=== PATIENT | male | born 1955 | race Caucasian/White ===

== ENCOUNTER → 2018-03-11 | Day surgery (SDC) | payer BC ==
[2018-03-10 12:32] LABS: BASOPHILS # (AUTO) 0.1 (0.0-0.1); EOSINOPHILS # (AUTO) 0.1 (0.0-0.4); EOSINOPHILS % 1.4 % (0.0-6.0); HEMOGLOBIN 15.5 g/dL (14.0-18.0); LYMPHOCYTES # (AUTO) 2.1 (1.0-3.2); MEAN CORPUSCULAR HGB CONC 34.4 g/dL (31-35); MONOCYTES # (AUTO) 0.5 (0.2-0.8); MONOCYTES % 7.6 % (4.4-11.3); NEUTROPHILS # (AUTO) 4.2 (2.1-6.9); NEUTROPHILS % 59.6 % (38.7-80.0); PLATELET COUNT 276 x10e3/uL (140-360); RED CELL DISTRIBUTION WIDTH 12.1 % (11.7-14.4)
[2018-03-10 12:42] LABS: INR 0.89; PROTHROMBIN TIME 12.9 seconds (11.9-14.5)
[2018-03-10 12:53] LABS: ALANINE AMINOTRANSFERASE 42 IU/L (0-55); ALBUMIN/GLOBULIN RATIO 1.3 (0.8-2.0); ALKALINE PHOSPHATASE 69 IU/L (40-150); ANION GAP 12.5 mmol/L (8-16); BLOOD UREA NITROGEN 20 mg/dL (7-26); BUN/CREATININE RATIO 20 (6-25); CALCIUM 9.7 mg/dL (8.4-10.2); CARBON DIOXIDE 27 mmol/L (22-29); CHLORIDE 104 mmol/L (98-107); CREATININE, SERUM 1.01 mg/dL (0.72-1.25); EST GLOMERULAR FILTRATION RATE > 60 ML/MIN (60-); GLUCOSE 74 mg/dL (74-118); POTASSIUM 4.5 mmol/L (3.5-5.1); SODIUM 139 mmol/L (136-145)
[2018-03-11] VITALS (7 sets, daily range): BP systolic 136–183; BP diastolic 70–89
[~2018-03-11] VITALS: Ht 175.3 cm; Wt 93.0 kg
[~2018-03-11] MED LIST: ALPRAZOLAM1 MG PO; ASPIR 8181 MG PO; ASPIRIN81 MG PEG; BENZOCAINE 20% SPR 60 ML CAN ONE; FENTANYL CITRATE/PF 100MCG/2 ML INJ ONE; HEPARIN SOD (PORCINE) 1000 UNIT/ML 30ML ONE; HEPARIN SOD/SOD CHLORIDE 2,000 ML ONE; IOPAMIDOL 370 MG/ML 200 ML INFUS..BTL INJ ONE; LIDOCAINE HCL 2% LOCAL 20 ML VIAL ONE; LOSARTAN POTASS25 MG PO; MIDAZOLAM HCL 2 MG/2 ML VIAL ONE; MULTI-VITAMIN1 EACH PO; NIACIN500 M2 PO; NITROGLYCERIN/D5W 200 MCG/ML 250 ML ONE; OMEGA 3 FISH O1 EACH PO; PRILOSEC PO; PROPOFOL IV EMULSION 10 MG/ML 20 ML VIAL ONE; SODIUM CHLORIDE 0.9% 1000ML 1,000 ML ONE; TAMAZAPAM PO; TEMAZEPAM30 MG PO; VENLAFAXINE HCL75 MG PO; VERAPAMIL HCL 2.5 MG/ML 2 ML VIAL ONE
--- NOTE | 2018-03-11 16:20 | NUR ---
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 Identifierx2 [facility] post MARCIN DrDoroteoa. No Fix. 400cc NS to left hand at 100cchr via iv pump. BAck to baseline orientation. PEERL at bedside. Abd soft and nontender Denies necessity defecate or urinate. Manolo fem PPx4. Rt Vascade femoral site w/o s/s bleeding or hematoma. DC time approx 1830. Paper discussed with and copies of POC given to pt. VS stable NSR.
--- NOTE | 2018-03-11 16:58 | Operative Report ---
DATE OF PROCEDURE: March 11, 2018 INDICATIONS: Coronary artery disease and abnormal stress test. PROCEDURES PERFORMED 1. Left heart catheterization. 2. Selective coronary angiography. 3. Deployment of right groin VAS closer device. COMPLICATIONS: None. RECOMMENDATIONS: Medical therapy. Consider right coronary artery stent if angina. Access obtained in the right femoral artery. A 6-Swedish sheath was placed. Diagnostic coronary angiogram revealed widely patent left main. Left anterior descending artery had mild 20% stenosis. Circumflex was occluded, small vessel 2 mm in size. Right coronary artery mid 50% to 70% stenosis. Dominant right coronary artery with collaterals to the circumflex artery. Ramus intermedius was widely patent. LV end-diastolic pressure of 20. No gradient across the aortic valve on pullback. Right groin was repaired using VAS closer device. Patient discharged home same day. Job#: [id number] [employer]
--- NOTE | 2018-03-11 18:30 | NUR ---
1830 dc home with rt vascade femoral dressing intact PPx4 PD/ Dp present. Poc discussed and copies of DC papers with pt iv removed ,site w/o s/s infiltration. 2x2 gauze dressing with coban dressing in place. Denies Cp or Sob aware of importance f/o care and following POC Has helper driver and tolerating po intake. To car per RN and escorted and buckled to car seat. Stable vs no c/o.
== END | disposition home or self-care (01) ==
LOC: CATH LAB 11:08 → EDSTATUS 14:00
PROVIDERS: ATTEND Internal Medicine
DX: I25.10 Atherosclerotic heart disease of native coronary artery without angina pectoris (principal); Q23.1 Congenital insufficiency of aortic valve; R94.39 Abnormal result of other cardiovascular function study; I10 Essential (primary) hypertension; K21.9 Gastro-esophageal reflux disease without esophagitis; F41.9 Anxiety disorder, unspecified; Z01.812 Encounter for preprocedural laboratory examination
CPT/HCPCS: 36415; 80053; 85025; 85610; 93312; 93320; 93325; 93458; C1760; C1769; J1644; J2001; J2250; J2704; J7030; Q9967

== ENCOUNTER 2020-11-27 17:44 | Emergency (ER) | payer BC ==
[~2020-11-27] VITALS: Ht 177.8 cm; Wt 88.5 kg
[~2020-11-27 17:44] MED LIST changes: -BENZOCAINE 20% SPR 60 ML CAN ONE; -FENTANYL CITRATE/PF 100MCG/2 ML INJ ONE; -HEPARIN SOD (PORCINE) 1000 UNIT/ML 30ML ONE; -HEPARIN SOD/SOD CHLORIDE 2,000 ML ONE; -IOPAMIDOL 370 MG/ML 200 ML INFUS..BTL INJ ONE; -LIDOCAINE HCL 2% LOCAL 20 ML VIAL ONE; -MIDAZOLAM HCL 2 MG/2 ML VIAL ONE; -NITROGLYCERIN/D5W 200 MCG/ML 250 ML ONE; -PROPOFOL IV EMULSION 10 MG/ML 20 ML VIAL ONE; -SODIUM CHLORIDE 0.9% 1000ML 1,000 ML ONE; -VERAPAMIL HCL 2.5 MG/ML 2 ML VIAL ONE
[2020-11-27] MEDS ORDERED: PREDNISONE50 MG PO (18:17)
[2020-11-27] MEDS ORDERED: VALACYCLOVIR1000 MG PO (18:24)
== END 2020-11-27 18:46 | disposition home or self-care (01) ==
LOC: ER 18:27
DX: G51.0 Bell's palsy (principal); I10 Essential (primary) hypertension; K21.9 Gastro-esophageal reflux disease without esophagitis; Z86.73 Personal history of transient ischemic attack (TIA), and cerebral infarction without residual deficits; Z85.72 Personal history of non-Hodgkin lymphomas
CPT/HCPCS: 99282

== ENCOUNTER 2024-12-17 03:14 | Inpatient (IN) | payer MEDICARE ==
[2024-12-17] VITALS (11 sets, daily range): BP systolic 98–157; BP diastolic 64–83; PULSE 55–101; RESP 14–20; TEMP 98.1–100.2; O2SAT 94–100
[~2024-12-17] VITALS: Ht 175.3 cm; Wt 93.0 kg
[~2024-12-17 03:14] MED LIST changes: +PREDNISONE50 MG PO; +VALACYCLOVIR1000 MG PO
[2024-12-17 03:35] LABS: BASOPHILS % 0.4 % (0.0-1.0); EOSINOPHILS % 2.2 % (0.0-6.0); LYMPHOCYTES % 10.7 % (18.0-39.1); MONOCYTES % 7.3 % (4.4-11.3); NEUTROPHILS % 79.0 % (38.7-80.0); RED CELL DISTRIBUTION WIDTH 12.6 % (11.7-14.4)
[2024-12-17] MEDS: ONDANSETRON HCL INJ 2MG/ML 2ML 2 MG/ML VIAL IV STA (03:41)
[2024-12-17] MEDS: Morphine 2mg Syringe 2 MG/ML SYR IV ONE (03:42)
[2024-12-17 03:51] LABS: INR 0.9
[2024-12-17 04:01] LABS: EST GLOMERULAR FILTRATION RATE 51 ML/MIN (>=60)
[2024-12-17] MEDS ORDERED: LIPITOR20 MG PO (05:17)
[2024-12-17] MEDS ORDERED: CLOPIDOGREL75 MG PO (05:17)
[2024-12-17] MEDS ORDERED: LEXAPRO20 MG PO (05:17)
[2024-12-17] MEDS ORDERED: TENORMIN25 MG PO (05:17)
[2024-12-17] MEDS ORDERED: OMEPRAZOLE40 MG PO (05:17)
[2024-12-17] MEDS: CLOPIDOGREL BISULFATE 75 MG TAB PO SCH (08:45)
[2024-12-17] MEDS: ASPIRIN 81 MG ENTERIC COATED PO SCH (08:45)
[2024-12-17] MEDS: Morphine 2mg Syringe 2 MG/ML SYR IV PRN (10:09)
[2024-12-17] MEDS: ACETAMINOPHEN 325 MG TAB PO PRN ×2 (12:24→19:47)
[2024-12-17 13:52] LABS: CORONAVIRUS COVID-19 AG NEGATIVE (NEGATIVE)
[2024-12-17] MEDS ORDERED: DEXTROSE 50% SYRINGE 50 ML IV PRN (14:15)
[2024-12-17] MEDS ORDERED: ALBUTEROL/IPRATROPIUM 3 ML NEB NEB PRN (14:15)
[2024-12-17] MEDS ORDERED: SIMETHICONE 80 MG CHEW PO PRN (14:15)
[2024-12-17] MEDS ORDERED: MELATONIN 5 MG TABLET PO PRN (14:15)
[2024-12-17] MEDS ORDERED: BENZONATATE 100 MG CAP PO PRN (14:15)
[2024-12-17] MEDS ORDERED: DIPHENHYDRAMINE HCL 25 MG CAP PO PRN (14:15)
[2024-12-17] MEDS ORDERED: ONDANSETRON HCL INJ 2MG/ML 2ML 2 MG/ML VIAL IV PRN (14:15)
[2024-12-17] MEDS ORDERED: HYDRALAZINE HCL 20 MG/ML VIAL IV PRN (14:15)
[2024-12-17] MEDS ORDERED: DOCUSATE SODIUM 100 MG CAP PO PRN (14:15)
[2024-12-17] MEDS ORDERED: IOPAMIDOL 370 MG/ML 100 ML INFUS..BTL INJ ONE (14:46)
[2024-12-17] MEDS: SODIUM CHLORIDE 0.9% 1000ML 1,000 ML IV SCH (16:06)
[2024-12-17] MEDS: ENOXAPARIN SOD INJ 40 MG/0.4 ML SYR SC SCH (17:03)
[2024-12-17] MEDS: ONDANSETRON HCL INJ 2MG/ML 2ML 2 MG/ML VIAL IV PRN (19:48)
[2024-12-17] MEDS: ATENOLOL 50 MG TAB PO SCH (19:51)
[2024-12-17] MEDS: ATORVASTATIN 20 MG TAB PO SCH (19:51)
[2024-12-17] MEDS: Doxycycline IV 100 MG in SODIUM CHLORIDE 0.9% 100 ML IV SCH (22:06)
[2024-12-18] VITALS (11 sets, daily range): BP systolic 99–125; BP diastolic 62–71; PULSE 63–91; RESP 17–20; TEMP 97.4–101.3; O2SAT 93–98
[2024-12-18 05:11] LABS: BASOPHILS % 0.2 % (0.0-1.0); EOSINOPHILS % 0.1 % (0.0-6.0); LYMPHOCYTES % 4.2 % (18.0-39.1); MONOCYTES % 6.9 % (4.4-11.3); NEUTROPHILS % 86.6 % (38.7-80.0); RED CELL DISTRIBUTION WIDTH 13.2 % (11.7-14.4)
[2024-12-18 05:56] LABS: EST GLOMERULAR FILTRATION RATE 40.0 ML/MIN (>=60); PHOSPHORUS 2.9 MG/DL (2.3-4.7)
[2024-12-18 06:18] LABS: CHOL/HDL RATIO 2.1 (3.9-4.7); LDL CHOLESTEROL 15.0 MG/DL (60-130)
[2024-12-18] MEDS: PANTOPRAZOLE SOD 40 MG TABEC PO SCH (07:36)
[2024-12-18] MEDS ORDERED: CLOPIDOGREL BISULFATE 75 MG TAB PO SCH (09:00)
[2024-12-18] MEDS ORDERED: ASPIRIN 81 MG CHEW TAB PEG SCH (09:00)
[2024-12-18] MEDS: ATENOLOL 50 MG TAB PO SCH (09:00)
[2024-12-18] MEDS: LOSARTAN POTASSIUM 25 MG TAB PO SCH (09:00)
[2024-12-19] VITALS (12 sets, daily range): BP systolic 117–139; BP diastolic 70–88; PULSE 75–92; RESP 17–20; TEMP 98–99.9; O2SAT 95–98
[2024-12-19 04:59] LABS: BASOPHILS % 0.1 % (0.0-1.0); EOSINOPHILS % 0.2 % (0.0-6.0); LYMPHOCYTES % 3.2 % (18.0-39.1); MONOCYTES % 5.7 % (4.4-11.3); NEUTROPHILS % 87.1 % (38.7-80.0); RED CELL DISTRIBUTION WIDTH 13.2 % (11.7-14.4)
[2024-12-19 05:24] LABS: EST GLOMERULAR FILTRATION RATE 45.0 ML/MIN (>=60)
[2024-12-19] MEDS: POTASSIUM CHLORIDE 20 MEQ TAB CR PO ONE (14:20)
[2024-12-19] MEDS: CALCIUM CARBONATE 500 MG CHEWABLE TABS PO PRN (18:04)
[2024-12-19] MEDS: LOSARTAN POTASSIUM 25 MG TAB PO SCH (20:21)
[2024-12-20] VITALS (10 sets, daily range): BP systolic 108–128; BP diastolic 50–76; PULSE 68–83; RESP 18–20; TEMP 98–99.5; O2SAT 94–98
[2024-12-20] MEDS: ALPRAZOLAM 1 MG TAB PO SCH (04:30)
[2024-12-20 04:43] LABS: BASOPHILS % 0.1 % (0.0-1.0); EOSINOPHILS % 0.6 % (0.0-6.0); LYMPHOCYTES % 4.3 % (18.0-39.1); MONOCYTES % 6.0 % (4.4-11.3); NEUTROPHILS % 87.1 % (38.7-80.0); RED CELL DISTRIBUTION WIDTH 13.3 % (11.7-14.4)
[2024-12-20 05:12] LABS: EST GLOMERULAR FILTRATION RATE 51.0 ML/MIN (>=60)
[2024-12-20] MEDS ORDERED: ALPRAZOLAM 1 MG TAB PO PRN (12:45)
[2024-12-20] MEDS: ESCITALOPRAM OXALATE 10 MG TAB PO SCH (12:57)
[2024-12-21] VITALS (8 sets, daily range): BP systolic 109–147; BP diastolic 71–82; PULSE 66–75; RESP 15–20; TEMP 98.2–98.9; O2SAT 95–98
[2024-12-21 04:59] LABS: BASOPHILS % 0.3 % (0.0-1.0); EOSINOPHILS % 2.2 % (0.0-6.0); LYMPHOCYTES % 6.3 % (18.0-39.1); MONOCYTES % 8.2 % (4.4-11.3); NEUTROPHILS % 82.3 % (38.7-80.0); RED CELL DISTRIBUTION WIDTH 13.7 % (11.7-14.4)
[2024-12-21 05:20] LABS: EST GLOMERULAR FILTRATION RATE 57.0 ML/MIN (>=60)
[2024-12-21] MEDS: POTASSIUM CHLORIDE 20 MEQ TAB CR PO PRN (08:28)
[2024-12-21] MEDS: MAGNESIUM SULFATE 2GM/50ML 50 ML IV ONE (10:38)
[2024-12-21] MEDS: POTASSIUM CHLORIDE 20 MEQ TAB CR PO ONE (10:38)
[2024-12-22] VITALS (7 sets, daily range): BP systolic 127–143; BP diastolic 66–80; PULSE 64–82; RESP 16–20; TEMP 98.4–100.1; O2SAT 95–98
[2024-12-22 07:33] LABS: BASOPHILS % 0.5 % (0.0-1.0); EOSINOPHILS % 3.2 % (0.0-6.0); LYMPHOCYTES % 9.1 % (18.0-39.1); MONOCYTES % 8.2 % (4.4-11.3); NEUTROPHILS % 77.6 % (38.7-80.0); RED CELL DISTRIBUTION WIDTH 13.7 % (11.7-14.4)
[2024-12-22 07:53] LABS: EST GLOMERULAR FILTRATION RATE 59.0 ML/MIN (>=60)
[2024-12-22] MEDS: FUROSEMIDE INJ 10 MG/ML 4 ML VIAL IV ONE (11:50)
== END 2024-12-22 16:05 | disposition home or self-care (01) | DRG 194 ==
LOC: ER 03:26 → ERHOLD 04:16 → MED/SURG 04:43 → OBSVTOIN 12-18 14:00
PROVIDERS: ADMIT Internal Medicine; ATTEND Internal Medicine
DX: J18.9 Pneumonia, unspecified organism (principal); C85.9A Non-Hodgkin lymphoma, unspecified, in remission; N17.9 Acute kidney failure, unspecified; R07.89 Other chest pain; R11.2 Nausea with vomiting, unspecified; I12.9 Hypertensive chronic kidney disease with stage 1 through stage 4 chronic kidney disease, or unspecified chronic kidney disease; N18.9 Chronic kidney disease, unspecified; R00.1 Bradycardia, unspecified; E87.6 Hypokalemia; E83.42 Hypomagnesemia; I25.10 Atherosclerotic heart disease of native coronary artery without angina pectoris; Z95.5 Presence of coronary angioplasty implant and graft; E78.5 Hyperlipidemia, unspecified; R94.39 Abnormal result of other cardiovascular function study; K21.9 Gastro-esophageal reflux disease without esophagitis; F41.9 Anxiety disorder, unspecified; J43.9 Emphysema, unspecified; Z86.73 Personal history of transient ischemic attack (TIA), and cerebral infarction without residual deficits; Z11.52 Encounter for screening for COVID-19; Z79.899 Other long term (current) drug therapy; Z79.02 Long term (current) use of antithrombotics/antiplatelets; Z79.82 Long term (current) use of aspirin
CPT/HCPCS: 36415; 71045; 71260; 74177; 80048; 80053; 80061; 82550; 83036; 83735; 83880; 84100; 84132; 84443; 84484; 85025; 85610; 85730; 87040; 87086; 93005; 94799; 99284; G0378; J1650; J1938; J2270; J2405; J2470; J2543; J3475; J7030; J7050; Q9967